=== PATIENT | male | born 1990 | race Caucasian/White ===

== ENCOUNTER 2018-11-10 12:13 | Emergency (ER) | payer BC ==
--- NOTE | 2018-11-10 12:23 | ER Report ---
History and Physical Time Seen By MD: 12:20 HPI/ROS CHIEF COMPLAINT: Fevers, bodyaches, cough HISTORY OF PRESENT ILLNESS: 28-year-old male patient presents to emergency room with complaint of fevers, bodyaches and cough. Patient states he's been having symptoms since last week. He states that over the weekend things even worse. He states that today he's been having more bodyaches, shortness of breath. Patient states he's had several episodes of emesis, postoperative related to coughing. He states that he is not been nauseated, he denies having any diarrhea. Patient states has been taking Harinder for his fevers. He states that he's had no appetite. He denies sore throat. States he does have some discomfort across the chest which is worse with coughing. REVIEW OF SYSTEMS: Respiratory: As noted above Cardiovascular: No chest pain, no palpitations. Gastrointestinal: No vomiting, no abdominal pain. Musculoskeletal: No back pain. Allergies: Coded Allergies: No Known Drug Allergies (Unverified , 11/10/18) Home Meds Active Scripts Albuterol Sulfate (VENTOLIN HFA) 18 Gm Inh, 2 PUFF INH Q4-6H PRN for SHORTNESS OF BREATH, #1 INH Prov:KADIE [facility] 11/10/18 Azithromycin 250 Mg Tab (AZITHROMYCIN 250 MG TAB) 250 Mg Tablet, 1 TAB PO QDAY, #6 TAB Take 2 tabs today and then 1 tab a day until gone. Prov:KADIE [facility] 11/10/18 Past Medical/Surgical History Patient denies any pertinent medical or surgical history. Reviewed Nurses Notes: Yes Constitutional Vital Sign - Last 24 Hours 11/10/18 11/10/18 11/10/18 11/10/18 12:13 12:16 12:19 12:30 Temp 100.9 Pulse ??? 114 Resp 20 B/P (MAP) 139/90 (106) 139/80 109/76 (87) Pulse Ox 90 O2 Delivery Room Air 11/10/18 11/10/18 11/10/18 11/10/18 12:43 13:13 13:30 13:43 Pulse 96 89 94 B/P (MAP) 125/79 (94) Pulse Ox 88 93 89 11/10/18 11/10/18 11/10/18 14:00 14:42 14:43 Temp 101.8 100.1 100.1 Pulse 88 Resp 18 B/P (MAP) 129/80 (96) Pulse Ox 91 O2 Delivery Room Air Physical Exam General Appearance: The patient is alert, has no immediate need for airway protection and no current signs of toxicity. Respiratory: Chest is non tender, lungs are clear to auscultation. Patient has frequent cough especially with deep inspiration. Cardiac: regular rate and rhythm Gastrointestinal: Abdomen is soft and non tender, no masses, bowel sounds normal. Musculoskeletal: Neck: Neck is supple and non tender. Extremities have full range of motion and are non tender. Skin: No rashes or lesions. DIFFERENTIAL DIAGNOSIS: After history and physical exam differential diagnosis was considered for adult fever including but not limited to viral syndromes incl uding influenza, urinary tract infection, pneumonia and sepsis. Medical Decision Making Data Points Result Diagram: 11/10/18 1235 11/10/18 1235 Laboratory Hematology Test 11/10/18 12:19 11/10/18 12:35 11/10/18 13:08 Influenza Virus Type A (PCR) Negative (NEGATIVE) Influenza Virus Type B (PCR) Negative (NEGATIVE) Group A Streptococcus (PCR) Negative (NEGATIVE) Red Blood Count 5.01 M/uL (4.00-5.60) Mean Corpuscular Volume 86.4 fL (80.0-96.0) Mean Corpuscular Hemoglobin 30.0 pg (26.0-33.0) Mean Corpuscular Hemoglobin Concent 34.8 g/dL (32.0-36.0) Red Cell Distribution Width 13.2 % (11.5-14.5) Mean Platelet Volume 8.6 fL (7.2-11.1) Neutrophils (%) (Auto) 65.2 % (39.4-72.5) Lymphocytes (%) (Auto) 21.5 % (17.6-49.6) Monocytes (%) (Auto) 9.8 % (4.1-12.4) Eosinophils (%) (Auto) 2.4 % (0.4-6.7) Basophils (%) (Auto) 1.1 % (0.3-1.4) Nucleated RBC Relative Count (auto) 0.3 /100WBC Neutrophils # (Auto) 2.6 K/uL (2.0-7.4) Lymphocytes # (Auto) 0.8 K/uL (1.3-3.6) Monocytes # (Auto) 0.4 K/uL (0.3-1.0) Eosinophils # (Auto) 0.1 K/uL (0.0-0.5) Basophils # (Auto) 0.0 K/uL (0.0-0.1) Nucleated RBC Absolute Count (auto) 0.01 K/uL Sodium Level 138 mmol/L (137-145) Potassium Level 4.1 mmol/L (3.5-5.0) Chloride Level 100 mmol/L (98-107) Carbon Dioxide Level 27 mmol/L (22-30) Blood Urea Nitrogen 11 mg/dl (9-21) Creatinine 1.40 mg/dl (0.66-1.25) Glomerular Filtration Rate Calc 59.9 Random Glucose 101 mg/dl (75-110) Lactate 1.0 mmol/L (0.7-2.1) Calcium Level 9.1 mg/dl (8.4-10.2) Total Bilirubin 0.9 mg/dl (0.2-1.3) Aspartate Amino Transf (AST/SGOT) 32 U/L (0-35) Alanine Aminotransferase (ALT/SGPT) 45 U/L (0-56) Alkaline Phosphatase 54 U/L (0-126) C-Reactive Protein 7.8 mg/dl (<1.0) Total Protein 8.0 g/dl (6.3-8.2) Albumin 4.5 g/dl (3.5-5.0) Urine Color Yellow Urine Clarity Clear Urine pH 7.0 pH (4.8-9.5) Urine Specific Skippers 1.019 Urine Protein 30 mg/dL (NEGATIVE) Urine Glucose (UA) Negative mg/dL (NEGATIVE) Urine Ketones Negative mg/dL (NEGATIVE) Urine Blood Negative (NEGATIVE) Urine Nitrite Negative (NEGATIVE) Urine Bilirubin Negative (NEGATIVE) Urine Urobilinogen 4.0 mg/dL (0.2-1.9) Urine Leukocyte Esterase Negative (NEGATIVE) Urine RBC <1 /HPF (0-2/HPF) Urine WBC 1 /HPF (0-5/HPF) Urine Squamous Epithelial Cells None /LPF (</=FEW) Urine Bacteria Negative /HPF (NONE-FEW) Urine Mucus None /HPF (NONE-FEW) Chemistry Test 11/10/18 12:19 79/19 12:35 11/10/18 13:08 Influenza Virus Type A (PCR) Negative (NEGATIVE) Influenza Virus Type B (PCR) Negative (NEGATIVE) Group A Streptococcus (PCR) Negative (NEGATIVE) White Blood Count 3.9 k/uL (4.5-11.0) Red Blood Count 5.01 M/uL (4.00-5.60) Hemoglobin 15.0 g/dL (14.0-18.0) Hematocrit 43.3 % (42.0-52.0) Mean Corpuscular Volume 86.4 fL (80.0-96.0) Mean Corpuscular Hemoglobin 30.0 pg (26.0-33.0) Mean Corpuscular Hemoglobin Concent 34.8 g/dL (32.0-36.0) Red Cell Distribution Width 13.2 % (11.5-14.5) Platelet Count 126 K/uL (150-450) Mean Platelet Volume 8.6 fL (7.2-11.1) Neutrophils (%) (Auto) 65.2 % (39.4-72.5) Lymphocytes (%) (Auto) 21.5 % (17.6-49.6) Monocytes (%) (Auto) 9.8 % (4.1-12.4) Eosinophils (%) (Auto) 2.4 % (0.4-6.7) Basophils (%) (Auto) 1.1 % (0.3-1.4) Nucleated RBC Relative Count (auto) 0.3 /100WBC Neutrophils # (Auto) 2.6 K/uL (2.0-7.4) Lymphocytes # (Auto) 0.8 K/uL (1.3-3.6) Monocytes # (Auto) 0.4 K/uL (0.3-1.0) Eosinophils # (Auto) 0.1 K/uL (0.0-0.5) Basophils # (Auto) 0.0 K/uL (0.0-0.1) Nucleated RBC Absolute Count (auto) 0.01 K/uL Glomerular Filtration Rate Calc 59.9 Lactate 1.0 mmol/L (0.7-2.1) Calcium Level 9.1 mg/dl (8.4-10.2) Total Bilirubin 0.9 mg/dl (0.2-1.3) Aspartate Amino Transf (AST/SGOT) 32 U/L (0-35) Alanine Aminotransferase (ALT/SGPT) 45 U/L (0-56) Alkaline Phosphatase 54 U/L (0-126) C-Reactive Protein 7.8 mg/dl (<1.0) Total Protein 8.0 g/dl (6.3-8.2) Albumin 4.5 g/dl (3.5-5.0) Urine Color Yellow Urine Clarity Clear Urine pH 7.0 pH (4.8-9.5) Urine Specific Skippers 1.019 Urine Protein 30 mg/dL (NEGATIVE) Urine Glucose (UA) Negative mg/dL (NEGATIVE) Urine Ketones Negative mg/dL (NEGATIVE) Urine Blood Negative (NEGATIVE) Urine Nitrite Negative (NEGATIVE) Urine Bilirubin Negative (NEGATIVE) Urine Urobilinogen 4.0 mg/dL (0.2-1.9) Urine Leukocyte Esterase Negative (NEGATIVE) Urine RBC <1 /HPF (0-2/HPF) Urine WBC 1 /HPF (0-5/HPF) Urine Squamous Epithelial Cells None /LPF (</=FEW) Urine Bacteria Negative /HPF (NONE-FEW) Urine Mucus None /HPF (NONE-FEW) Urinalysis Test 11/10/18 13:08 Urine Color Yellow Urine Clarity Clear Urine pH 7.0 pH (4.8-9.5) Urine Specific Skippers 1.019 Urine Protein 30 mg/dL (NEGATIVE) Urine Glucose (UA) Negative mg/dL (NEGATIVE) Urine Ketones Negative mg/dL (NEGATIVE) Urine Blood Negative (NEGATIVE) Urine Nitrite Negative (NEGATIVE) Urine Bilirubin Negative (NEGATIVE) Urine Urobilinogen 4.0 mg/dL (0.2-1.9) Urine Leukocyte Esterase Negative (NEGATIVE) Urine RBC <1 /HPF (0-2/HPF) Urine WBC 1 /HPF (0-5/HPF) Urine Squamous Epithelial Cells None /LPF (</=FEW) Urine Bacteria Negative /HPF (NONE-FEW) Urine Mucus None /HPF (NONE-FEW) EKG/Imaging Imaging Chest 2 views: HISTORY: Chest pain, fever, shortness of breath x5 days. Gradually feeling worse. COMPARISON: None. FINDINGS: Frontal and lateral chest: Cardiomediastinal silhouette is within normal limits. There is vague, mostly interstitial infiltrate in the right lung, probably in the right lower lobe. Left lung is clear. There is no pleural effusion or pneumothorax. Pulmonary vasculature is normal. IMPRESSION: Subtle infiltrate in the right lung, findings are consistent with a pneumonia in the appropriate clinical setting. There is no pleural effusion. Report Dictated By: Jaimie Peterson MD at 11/10/2018 1:13 PM Report E-Signed By: Jaimie Peterson MD at 11/10/2018 1:15 PM ED Course/Re-evaluation ED Course Patient was admitted to examine, history and physical were obtained. Differential diagnoses were considered. On examination lungs are coarse, heart is tachycardic, abdomen is soft and nontender. A strep screen, if was screen, CBC, CMP, CRP were done. Patient had a white count of 3.9, no left shift, patient had platelets of 125. Strep was negative, influenza was negative. Chest x-ray was done which showed right lower lobe pneumonia. I believe that is likely the underlying cause of patient having fever and feeling so bad. Patient had a lactate of one. I did treat the patient with 1 g of Rocephin IV. We will go ahead and discharge patient home with azithromycin. He started taking that today. Patient is also given inhaler to help open up his airway. Patient is to follow-up with his primary care provider [facility] of this week. He is return to emergency room if condition worsens. Patient verbalized understanding and agreement with plan. Decision to Disposition Date: Nov 10, 2018 Decision to Disposition Time: 13:43 Depart Departure Latest Vital Signs Vital Signs Date Time Temp Pulse Resp B/P (MAP) Pulse Ox O2 Delivery O2 Flow Rate FiO2 11/10/18 14:43 100.1 88 18 129/80 (96) 91 Room Air Impression: Primary Impression: Pneumonia Condition: Improved Disposition: HOME OR SELF-CARE New Scripts Albuterol Sulfate (VENTOLIN HFA) 18 Gm Inh 2 PUFF INH Q4-6H PRN for SHORTNESS OF BREATH, #1 INH Prov: KADIE SAN 11/10/18 Azithromycin 250 Mg Tab (AZITHROMYCIN 250 MG TAB) 250 Mg Tablet 1 TAB PO QDAY, #6 TAB Take 2 tabs today and then 1 tab a day until gone. Prov: KADIE SAN 11/10/18 Patient Instructions: Community Acquired Pneumonia (ED) Additional Instructions: Increase fluid intake. Get plenty of rest. Follow up with a primary care provider this week for re-evaluation. Take the medication as prescribed. Return to the ER if condition worsens. You should be feeling some improvement in the next 48 - 72 hours. Problem Qualifiers Primary Impression: Pneumonia Pneumonia type: due to unspecified organism Laterality: right Lung location: lower lobe of lung Qualified Codes: J18.1 - Lobar pneumonia, unspecified organism KADIE SAN Nov 10, 2018 12:23
[2018-11-10] MEDS ORDERED: NS(*) 0.9% 1000 ML BAG 1,000 ML IV ONE (12:35)
[2018-11-10 12:52] LABS: PLATELET COUNT, AUTOMATED 126 K/uL (150-450)
--- NOTE | 2018-11-10 13:23 | RADIOLOGY IMAGING REPORT ---
FACILITY: [facility] PATIENT NAME: Coleman Castro : 1990 MR: [id number] V: [id number] EXAM DATE: ORDERING PHYSICIAN: KADIE SAN TECHNOLOGIST: Location: [facility] Patient: Coleman Castro : 1990 Visit/Account:[id number] Date of Sevice: 11/10/2018 Chest 2 views: HISTORY: Chest pain, fever, shortness of breath x5 days. Gradually feeling worse. COMPARISON: None. FINDINGS: Frontal and lateral chest: Cardiomediastinal silhouette is within normal limits. There is vague, mostly interstitial infiltrate in the right lung, probably in the right lower lobe. Left lung is clear. There is no pleural effusion or pneumothorax. Pulmonary vasculature is normal. IMPRESSION: Subtle infiltrate in the right lung, findings are consistent with a pneumonia in the appr opriate clinical setting. There is no pleural effusion. Report Dictated By: Jaimie Peterson MD at 11/10/2018 1:13 PM Report E-Signed By: Jaimie Peterson MD at 11/10/2018 1:15 PM WSN:TED
[2018-11-10] MEDS ORDERED: LORazepam 2 MG/ML VIAL IVP ONE (13:25)
[2018-11-10] MEDS ORDERED: AZIT-18 PO (13:47)
[2018-11-10] MEDS ORDERED: ALB18R INH (13:47)
[2018-11-10] MEDS ORDERED: cefTRIAXone 1 GM VIAL IVP ONE (13:50)
[2018-11-10] MEDS ORDERED: ACETAMINOPHEN 500 MG TAB PO ONE (14:05)
[2018-11-10] MEDS ORDERED: ONDANSETRON 4 MG/2 ML VIAL IVP ONE (14:05)
[2018-11-10 14:43] VITALS: BP 129/80
== END 2018-11-10 14:46 | disposition home or self-care (01) ==
LOC: ER 12:49
DX: J18.1 Lobar pneumonia, unspecified organism (principal)
CPT/HCPCS: 71046; 81001; 83605; 85025; 86140; 87502; 87653; 96361; 96374; 96375; 99284; J0696; J2405; J7030; 82040; 82247; 82310; 82374; 82435; 82565; 82947; 84075; 84132; 84155; 84295; 84450; 84460; 84520